=== PATIENT | male | born 1985 | race Two or more races ===

== ENCOUNTER 2018-05-08 04:28 | Emergency (ER) | payer OTHER, SELFPAY ==
[~2018-05-08] VITALS: Ht 180.3 cm; Wt 112.4 kg
[2018-05-08 04:30] VITALS: BP 125/82
--- NOTE | 2018-05-08 05:00 | NUR ---
PT D/C WITH D/C SUMMARY AND SCRIPTS. PT DENIES ANY OTHER NEEDS PERTAINING TO THIS VISIT. PT VERBALIZES UNDERSTANDING OF [facility] INSTRUCTIONS AND ABX USE. PT AMBULATED TO REGISTRATION DESK WITH STEADY GAIT WITH D/C HOME.
== END 2018-05-08 05:03 | disposition home or self-care (01) ==
LOC: ED 04:30
DX: L03.311 Cellulitis of abdominal wall (principal)
CPT/HCPCS: 99283